=== PATIENT | female | born 1990 | race Caucasian/White ===

== ENCOUNTER 2017-01-15 01:24 | Emergency (ER) | payer OTHER ==
[~2017-01-15] VITALS: Ht 149.9 cm; Wt 43.0 kg
[2017-01-15 01:28] VITALS: TEMP 36.5; Ht 149.9 cm; Wt 43.0 kg
[2017-01-15] MEDS ORDERED: ONDANSETRON INJ 2 MG/ML 2 ML VIAL IV STA (01:45)
[2017-01-15] MEDS ORDERED: MoRPHine SULFATE 4 MG/ML 1 ML CARP\\VIAL IV STA (01:45)
[2017-01-15] MEDS ORDERED: SODIUM CHLORIDE 0.9% 1000ML 1,000 ML IV STA ×2 (01:45)
[2017-01-15] MEDS ORDERED: ONDANSETRON HOME PACK 4MG OD TAB ONE (03:27)
[2017-01-15 03:34] LABS: POTASSIUM 3.4 mmol/L (3.5-5.1)
[2017-01-15 04:00] LABS: BUN/CREATININE RATIO 14.2 (10-20); CREATININE 0.88 mg/dl (0.60-1.20)
[2017-01-15 04:09] VITALS: BP 97/64; O2SAT 95
--- NOTE | 2017-01-15 04:19 | EMERGENCY ROOM VISIT NOTE ---
History First contact with patient: 01:42 Chief Complaint: FLANK PAIN Stated Complaint: ABD AND BACK PAIN AND NAUSEA History of Present Illness The patient is a 26 year old female who presents to the Emergency Room with complaints of Left flank pain that raised to her groin for the past few hours that was sudden in onset currently 8 out of 10. Nothing makes it better or worse. Patient denies chest pain, dyspnea, fever, chills, cough, contusion, vomiting, diarrhea, vaginal itching or discharge, urinary symptoms. No history of similar symptoms in the past. No history kidney stones. No injury to the area. Patient tolerated by mouth fluids and food. Review of Systems See HPI for pertinent positives & negatives. A total of 10 systems reviewed and were otherwise negative. Past Medical/Surgical History Bipolar Social History Smoking Status: Current Every Day Smoker Allergies Coded Allergies: Amitriptyline (Unverified Allergy, Intermediate, unknown, 01/15/17) Amoxicillin (Verified Allergy, Intermediate, hives, 01/15/17) Uncoded Allergies: BACTRIUM (Allergy, Severe, Throat swelling, 01/15/17) Physical Exam Vital Signs Date Time Temp Pulse Resp B/P (MAP) Pulse Ox O2 Delivery O2 Flow Rate FiO2 01/15/17 04:09 74 18 97/64 95 Room Air 01/15/17 01:28 36.5 68 16 105/73 99 Room Air Physical Exam VITALS: Vitals are noted on the nurse's note and reviewed by myself. Vital signs stable. GENERAL: White female with blue hair dye on her hands, in no acute distress, nondiaphoretic, well-developed well-nourished. SKIN: The skin was without rashes, erythema, edema, or bruising. There is no tenting of the skin. Capillary reflex less than 2 seconds. HEAD: Normocephalic atraumatic. EARS: External auditory canals clear, tympanic membranes pearly flaherty without erythema or effusion bilaterally. EYES: Pupils equal round and reactive to light and accommodation. Conjunctivae without injection, sclerae without icterus. Extraocular movements intact. NOSE: Patent, turbinates without inflammation or discharge. MOUTH: Mucous membranes moist. Pharynx without erythema or exudate. Uvula midline. Airway patent. Tongue does not deviate. NECK: Supple without nuchal rigidity. No lymphadenopathy. No thyromegaly. Cervical spine is nontender. No JVD. HEART: Regular rate and rhythm without murmurs gallops or rubs. LUNGS: Clear to auscultation bilaterally without wheezes, rales or rhonchi. No dullness to percussion. No retractions or accessory muscle use. ABDOMEN: Positive bowel sounds x 4. Normal tympanic percussion. Soft, nontender, without masses or organomegaly. Hernandez sign negative. No guarding or rebound tenderness. Left CVA tenderness MUSCULOSKELETAL: No muscle atrophy, erythema, or edema noted. NEURO: Patient was alert and oriented to person place and time. Normal sensation to light and sharp touch. No focal neurological deficits. Medical Decision & Procedures Laboratory Results 01/15/17 02:06 Test 01/15/17 02:06 Anion Gap 8.0 mmol/L (3-11) Est Creatinine Clear Calc Drug Dose 66.9 ml/min Estimated GFR () 106.6 Estimated GFR (Non- 92.0 BUN/Creatinine Ratio 14.2 (10-20) Calcium Level 9.0 mg/dl (8.5-10.1) ED Course Prior records/ancillary studies reviewed. Triage Nursing notes reviewed. Additional history obtained from friend The patient's history was concerning for left flank pain. Differential diagnosis: Etiologies such as appendicitis, diverticulitis, PUD, biliary pathology, UTI, pancreatitis, obstruction, mesenteric ischemia, aortic pathology, infections, inflammatory bowel disease, renal colic, as well as others were entertained. Physical examination findings: As above. ER treatment provided: Morphine, Zofran, IV fluids On reassessment the patient felt better. Diagnostics interpreted by me: The labs revealed negative hCG. Negative urine. Mild leukocytosis. Stable H&H Imaging studies: CT was negative for appendicitis or stone per radiology Chest x-ray with no acute consolidation, pneumothorax or free air per my interpretation Exam and history seem consistent with left flank pain. Patient was neurovascular and neurologically intact. Unremarkable workup as above. Patient then states she had a cough and requested an x-ray and she thinks she has bronchitis. This is ordered and was negative. Patient was not coughing throughout her stay in the ER though. Patient is advised to follow-up family care in a few days or here in the ER sooner for abdominal pain, chest pain, fevers, worsening signs or symptoms or as needed. She did not have acute abdomen on exam. She was well-appearing. By the evaluation outlined above emergent etiologies such as appendicitis, diverticulitis, PUD, biliary pathology, UTI, pancreatitis, obstruction, mesenteric ischemia, aortic pathology, infections, inflammatory bowel disease, renal colic, as well as others were deemed relatively unlikely. The pt informed about the findings as listed above. All questions were answered and pleased with the treatment. Return instructions were outlined and the patient was discharged in stable condition. Outpatient prescription management: Zofran Referral: The patient was referred back to their primary care physician for follow-up in 2 to 3 days for a recheck of the current condition. Case reviewed with my attending. Medical Decision As above Impression Primary Impression: Left flank pain Departure Information Dispostion Home / Self-Care Condition GOOD Referrals No Doctor, Assigned (PCP) Forms HOME CARE DOCUMENTATION FORM, IMPORTANT VISIT INFORMATION Patient Instructions Abdominal Pain - [facility], [facility] Additional Instructions DO NOT drive, drink alcohol, operate machinery, or perform dangerous activities today. You were given medications in the ER that can affect your ability to safely function or operate a vehicle. Ibuprofen(Motrin, Advil) may be used for fever or pain. Use 400mg every six hours as needed. Take with food. Avoid using more than 1600mg in a 24 hour period. Do not use 1600mg per day for more than three consecutive days without physician direction. Prolonged inappropriate use can lead to stomach upset or ulcers. (AND/OR) Acetaminophen(Tylenol) may be used for fever or pain. Use 500mg every six hours as needed. Avoid using more than 200mg in a 24 hour period. Zofran 4mg: Take one every six hours as needed for nausea. Avoid alcohol, operating machinery or dangerous equipment, working on ladders or roofs, DRIVING , or situations where being under the influence may be dangerous. Rest and drink plenty of fluids as tolerated. Slow sips of water or sports drinks are recommended instead of large amounts all at once. Continue current medications. Once your stomach is settled start with a clear liquid diet (jello, soup broth, etc.) and then advance as tolerated. You should avoid full, heavy meals for about 24 hrs from the time your symptoms resolved. Return to the ER immediately for worsening or persistent abdominal pain, vomiting, fevers, chest pains, difficulty breathing, black or bloody stools, worsening of your condition, or as needed. Follow up with your primary physician in 24 hours for a recheck of your current condition.
[2017-01-15 04:27] LABS: BASO % 0.2 %; BASO ABS # 0.03 K/uL (0-0.2); COMPLETE YES; EOS % 1.3 %; HEMATOCRIT 36.3 % (37-47); IG% 0.3 %; LYMPH % 32.6 %; LYMPH ABS # 3.99 K/uL (1.2-3.4); MEAN CELL VOLUME 96.8 fL (80-100); MEAN CORPUSCULAR HEMOGLOBIN 33.9 pg (25-34); MEAN PLATELET VOLUME 9.5 fL (7.4-10.4); MONO % 6.1 %; NEUT % 59.5 %; PLATELET COUNT 309 K/uL (130-400); RED BLOOD COUNT 3.75 M/uL (4.2-5.4); WHITE BLOOD COUNT 12.25 K/uL (4.8-10.8)
[2017-01-15 04:29] LABS: PREG INTERNAL NEGATIVE QC NEG CLEAR BACKGROUND; PREG INTERNAL POSITIVE QC POS CONTROL LINE
--- NOTE | 2017-01-15 07:18 | DIAGNOSTIC IMAGING REPORT ---
TWO VIEW CHEST CLINICAL HISTORY: Cough. FINDINGS: PA and lateral chest radiographs are obtained. No prior studies are available for comparison at the time of dictation. The cardiomediastinal silhouette is unremarkable. The lungs and pleural spaces are clear. There is no pneumothorax. The bony thorax appears intact. IMPRESSION: No active disease in the chest. Electronically signed by: Darren Sandra M.D. 01/15/2017 7:17 AM Dictated Date/Time: 01/15/2017 7:16 AM
--- NOTE | 2017-01-15 07:21 | DIAGNOSTIC IMAGING REPORT ---
CT SCAN OF THE ABDOMEN AND PELVIS WITHOUT IV CONTRAST CLINICAL HISTORY: Left flank pain. COMPARISON STUDY: No priors. TECHNIQUE: CT scan of the abdomen and pelvis is performed from the lung bases to the proximal femora. Images are reviewed in the axial, sagittal, and coronal planes. IV contrast was not administered for this examination. Automated dose control exposure was utilized. CT DOSE: 284.27 mGy.cm FINDINGS: Lung bases: The heart is normal in size and without pericardial effusion. The lung bases are clear. Liver: The unenhanced liver is normal in size, contour, and attenuation. There is no intrahepatic biliary ductal dilatation. Gallbladder: Unremarkable. Spleen: Normal in size and attenuation. Pancreas: Unremarkable. Adrenal glands: Unremarkable. Kidneys: The unenhanced kidneys are normal in size and without hydronephrosis. There are no renal calculi identified. There is no evidence of contour deforming renal mass lesion. Abdominal vasculature: The abdominal aorta is normal in course and caliber. Bowel: The small bowel and colon are normal in course and caliber. There is mild to moderate colonic fecal retention. The appendix is well-visualized and normal. Peritoneum: There is no intraperitoneal free air or abdominal ascites. There is a small fat-containing umbilical hernia. Lymphadenopathy: None. Pelvic viscera: The bladder, uterus, and adnexa are normal as visualized. Skeletal structures: No lytic or blastic lesions are seen. IMPRESSION: There are no acute infectious or inflammatory findings in the abdomen or pelvis. Electronically signed by: Darren Sandra M.D. 01/15/2017 7:19 AM Dictated Date/Time: 01/15/2017 7:17 AM
[2017-02-09] MEDS ORDERED: STR10 PO (04:02)
[2017-02-09] MEDS ORDERED: LAMO25TA PO (04:02)
[2017-02-09] MEDS ORDERED: CLR10 PO (04:03)
[2017-02-09] MEDS ORDERED: OMEP40CA41 PO (04:05)
[2017-02-09] MEDS ORDERED: SERT-234 PO (04:06)
[2017-02-09] MEDS ORDERED: TOPI25TA99 PO (04:08)
[2017-02-09] MEDS ORDERED: PRVHFAIN INH (04:13)
[2017-02-19] MEDS ORDERED: EPP3/2 IM (09:23)
[2017-02-19] MEDS ORDERED: RIBO1TAB4 PO (09:23)
[2017-02-19] MEDS ORDERED: MAGN400T6 PO (09:23)
[2017-02-19] MEDS ORDERED: NAPR1TAB9 PO (09:24)
[2017-02-19] MEDS ORDERED: ACET-1256 PO (09:24)
[2017-02-19] MEDS ORDERED: CYAN10005 PO (09:24)
== END 2017-01-15 04:11 | disposition home or self-care (01) ==
LOC: C.EDB 01:26
DX: R10.32 Left lower quadrant pain (principal); R10.12 Left upper quadrant pain; R05 Cough; F17.200 Nicotine dependence, unspecified, uncomplicated; F31.9 Bipolar disorder, unspecified

== ENCOUNTER 2017-01-28 22:52 | Emergency (ER) | payer OTHER ==
[~2017-01-28] VITALS: Ht 152.4 cm; Wt 43.9 kg
[2017-01-28 22:56] VITALS: TEMP 36.5; Ht 152.4 cm; Wt 43.9 kg
[2017-01-28] MEDS ORDERED: SODIUM CHLORIDE 0.9% 1000ML 1,000 ML IV STA (23:12)
[2017-01-28] MEDS ORDERED: METOCLOPRAMIDE HCL INJ 5 MG/ML 2 ML VIAL IV STA (23:12)
[2017-01-28] MEDS ORDERED: DiphenhydrAMINE HCL 50 MG/ML VIAL IV STA (23:12)
[2017-01-28] MEDS ORDERED: LIDOCAINE HCL 2% VISC SOLN 20 ML UDC PO STA (23:12)
[2017-01-28] MEDS ORDERED: ALUMINUM/MAGNESIUM SUSP 30 ML UDC PO STA (23:12)
[2017-01-28 23:38] LABS: BASO % 0.2 %; BASO ABS # 0.02 K/uL (0-0.2); COMPLETE YES; EOS % 1.8 %; HEMATOCRIT 39.8 % (37-47); IG% 0.2 %; LYMPH % 22.6 %; LYMPH ABS # 2.57 K/uL (1.2-3.4); MEAN CORPUSCULAR HGB CONC 34.7 g/dl (32-36); MEAN PLATELET VOLUME 9.9 fL (7.4-10.4); MONO % 6.9 %; NEUT % 68.3 %; PLATELET COUNT 276 K/uL (130-400); RED BLOOD COUNT 4.06 M/uL (4.2-5.4); WHITE BLOOD COUNT 11.38 K/uL (4.8-10.8)
[2017-01-29] LABS: PREG INTERNAL NEGATIVE QC NEG CLEAR BACKGROUND; PREG INTERNAL POSITIVE QC POS CONTROL LINE
[2017-01-29 00:07] LABS: ALKALINE PHOSPHATASE 66 U/L (45-117); ALT/SGPT 19 U/L (12-78); BLOOD UREA NITROGEN 13 mg/dl (7-18); BUN/CREATININE RATIO 12.5 (10-20); CALCIUM 9.4 mg/dl (8.5-10.1); CARBON DIOXIDE 25 mmol/L (21-32); CHLORIDE 107 mmol/L (98-107); GLUCOSE 72 mg/dl (70-99)
[2017-01-29 00:11] LABS: POTASSIUM 4.2 mmol/L (3.5-5.1); SODIUM 141 mmol/L (136-145)
[2017-01-29 00:16] LABS: AST/SGOT 11 U/L (15-37)
[2017-01-29 00:40] LABS: URINE APPEARANCE CLEAR (CLEAR); URINE BILIRUBIN NEG (NEG); URINE COLOR YELLOW; URINE EPITHELIAL CELL AUTO >30 /lpf (0-5); URINE NITRITE NEG (NEG); URINE PH 5.5 (4.5-7.5); URINE SPECIFIC GRAVITY 1.026 (1.000-1.030); UROBILINOGEN NEG (NEG); ZZUR CULT IF INDIC CLEAN CATCH YES
[2017-01-29 00:41] LABS: MANUAL MICROSCOPIC REQUIRED? NO; REVIEW REQ? NO
[2017-01-29 00:52] VITALS: BP 94/51; PULSE 81; O2SAT 100
--- NOTE | 2017-01-29 01:12 | EMERGENCY ROOM VISIT NOTE ---
History First contact with patient: 23:04 Chief Complaint: ABDOMINAL PAIN Stated Complaint: RIB AND STOMACH PAIN Nursing Triage Summary: Pt reports abdominal pain that started last night. Pt reports nausea and vomiting. History of Present Illness The patient is a 26 year old female who presents to the Emergency Room with complaints of recurrent epigastric discomfort described as discomfort, 8 out of 10. Patient some omeprazole 40 mg twice a day. No endoscopy in the past. Patient states symptoms started again last night after eating cheese fries. Patient states she's been having ongoing reflux for many years. Patient just moved to the area one month ago. This is her second ER visit. Patient states she moved in with her girlfriend and will be staying in this area. Patient denies chest pain, dyspnea, back pain, diarrhea, black or blood in her stool, urinary symptoms. She is tolerating by mouth fluids and food. Review of Systems See HPI for pertinent positives & negatives. A total of 10 systems reviewed and were otherwise negative. Past Medical/Surgical History GERD Social History Smoking Status: Current Every Day Smoker Drug Use: none Marital Status: in relationship Housing Status: lives with significant other Allergies Coded Allergies: Amitriptyline (Unverified Allergy, Intermediate, unknown, 01/15/17) Amoxicillin (Verified Allergy, Intermediate, hives, 01/15/17) Uncoded Allergies: BACTRIUM (Allergy, Severe, Throat swelling, 01/15/17) Physical Exam Vital Signs Date Time Temp Pulse Resp B/P (MAP) Pulse Ox O2 Delivery O2 Flow Rate FiO2 01/29/17 00:52 81 21 94/51 100 01/28/17 23:44 Room Air 01/28/17 23:24 80 01/28/17 22:56 36.5 79 18 106/70 100 Room Air Pain Rating (0-10): 3.0 Physical Exam VITALS: Vitals are noted on the nurse's note and reviewed by myself. Vital signs stable. GENERAL: White female talking with her girlfriend, in no acute distress, nondiaphoretic, well-developed well-nourished. SKIN: The skin was without rashes, erythema, edema, or bruising. There is no tenting of the skin. Capillary reflex less than 2 seconds. HEAD: Normocephalic atraumatic. EARS: External auditory canals clear, tympanic membranes pearly flaherty without erythema or effusion bilaterally. EYES: Pupils equal round and reactive to light and accommodation. Conjunctivae without injection, sclerae without icterus. Extraocular movements intact. NOSE: Patent, turbinates without inflammation or discharge. MOUTH: Mucous membranes moist. Pharynx without erythema or exudate. Uvula midline. Airway patent. Tongue does not deviate. NECK: Supple without nuchal rigidity. No lymphadenopathy. No thyromegaly. Cervical spine is nontender. No JVD. HEART: Regular rate and rhythm without murmurs gallops or rubs. LUNGS: Clear to auscultation bilaterally without wheezes, rales or rhonchi. No dullness to percussion. No retractions or accessory muscle use. ABDOMEN: Positive bowel sounds x 4. Normal tympanic percussion. Soft, nontender, without masses or organomegaly. Hernandez sign negative. No guarding or rebound tenderness. No CVA tenderness MUSCULOSKELETAL: No muscle atrophy, erythema, or edema noted. NEURO: Patient was alert and oriented to person place and time. Normal sensation to light and sharp touch. No focal neurological deficits. Medical Decision & Procedures Laboratory Results 01/28/17 23:25 Red Blood Count 4.06, Mean Corpuscular Volume 98.0, Mean Corpuscular Hemoglobin 34.0, Mean Corpuscular Hemoglobin Concent 34.7, Mean Platelet Volume 9.9, Neutrophils (%) (Auto) 68.3, Lymphocytes (%) (Auto) 22.6, Monocytes (%) (Auto) 6.9, Eosinophils (%) (Auto) 1.8, Basophils (%) (Auto) 0.2, Neutrophils # (Auto) 7.77, Lymphocytes # (Auto) 2.57, Monocytes # (Auto) 0.79, Eosinophils # (Auto) 0.21, Basophils # (Auto) 0.02 01/28/17 23:25 Test 01/28/17 23:15 01/28/17 23:25 Urine Color YELLOW Urine Appearance CLEAR (CLEAR) Urine pH 5.5 (4.5-7.5) Urine Specific [place] 1.026 (1.000-1.030) Urine Protein NEG (NEG) Urine Glucose (UA) NEG (NEG) Urine Ketones NEG (NEG) Urine Occult Blood 1+ (NEG) Urine Nitrite NEG (NEG) Urine Bilirubin NEG (NEG) Urine Urobilinogen NEG (NEG) Urine Leukocyte Esterase NEG (NEG) Urine WBC (Auto) 1-5 /hpf (0-5) Urine RBC (Auto) 0-4 /hpf (0-4) Urine Hyaline Casts (Auto) 1-5 /lpf (0-5) Urine Epithelial Cells (Auto) >30 /lpf (0-5) Urine Bacteria (Auto) 1+ (NEG) White Blood Count 11.38 K/uL (4.8-10.8) Red Blood Count 4.06 M/uL (4.2-5.4) Hemoglobin 13.8 g/dL (12.0-16.0) Hematocrit 39.8 % (37-47) Mean Corpuscular Volume 98.0 fL (80-100) Mean Corpuscular Hemoglobin 34.0 pg (25-34) Mean Corpuscular Hemoglobin Concent 34.7 g/dl (32-36) Platelet Count 276 K/uL (130-400) Mean Platelet Volume 9.9 fL (7.4-10.4) Neutrophils (%) (Auto) 68.3 % Lymphocytes (%) (Auto) 22.6 % Monocytes (%) (Auto) 6.9 % Eosinophils (%) (Auto) 1.8 % Basophils (%) (Auto) 0.2 % Neutrophils # (Auto) 7.77 K/uL (1.4-6.5) Lymphocytes # (Auto) 2.57 K/uL (1.2-3.4) Monocytes # (Auto) 0.79 K/uL (0.11-0.59) Eosinophils # (Auto) 0.21 K/uL (0-0.5) Basophils # (Auto) 0.02 K/uL (0-0.2) RDW Standard Deviation 47.0 fL (36.4-46.3) RDW Coefficient of Variation 13.1 % (11.5-14.5) Immature Granulocyte % (Auto) 0.2 % Immature Granulocyte # (Auto) 0.02 K/uL (0.00-0.02) Anion Gap 9.0 mmol/L (3-11) Est Creatinine Clear Calc Drug Dose 60.1 ml/min Estimated GFR () 91.3 Estimated GFR (Non- 78.8 BUN/Creatinine Ratio 12.5 (10-20) Calcium Level 9.4 mg/dl (8.5-10.1) Total Bilirubin 0.3 mg/dl (0.2-1) Direct Bilirubin 0.1 mg/dl (0-0.2) Aspartate Amino Transf (AST/SGOT) 11 U/L (15-37) Alanine Aminotransferase (ALT/SGPT) 19 U/L (12-78) Alkaline Phosphatase 66 U/L (45-117) Troponin I < 0.015 ng/ml (0-0.045) Total Protein 7.4 gm/dl (6.4-8.2) Albumin 3.9 gm/dl (3.4-5.0) Lipase 144 U/L (73-393) Human Chorionic Gonadotropin, Qual NEG (NEG) Medications Administered Medications (Trade) Dose Ordered Sig/Hermila Route Start Time Stop Time Status Last Admin Dose Admin Lidocaine HCl (Viscous Lidocaine 2% Soln) 10 ml NOW STAT PO 01/28/17 23:12 01/28/17 23:14 DC 01/28/17 23:36 10 ML Al Hydroxide/Mg Hydroxide (Maalox Susp) 30 ml NOW STAT PO 01/28/17 23:12 01/28/17 23:14 DC 01/28/17 23:36 30 ML Metoclopramide HCl (Reglan Inj) 10 mg NOW STAT IV 01/28/17 23:12 01/28/17 23:14 DC 01/28/17 23:36 10 MG Diphenhydramine HCl (Benadryl Inj) 25 mg NOW STAT IV 01/28/17 23:12 01/28/17 23:14 DC 01/28/17 23:36 25 MG Sodium Chloride 1,000 ml @ 999 mls/hr Q1H1M STAT IV 01/28/17 23:12 01/29/17 00:12 DC 01/28/17 23:36 999 MLS/HR ED Course Prior records/ancillary studies reviewed. Triage Nursing notes reviewed. Additional history obtained from friend. The patient's history was concerning for abdominal pain. Differential diagnosis: Etiologies such as appendicitis, diverticulitis, PUD, biliary pathology, UTI, pancreatitis, obstruction, mesenteric ischemia, aortic pathology, infections, inflammatory bowel disease, renal colic, as well as others were entertained. Physical examination findings: As above. ER treatment provided: GI cocktail, Zantac On reassessment the patient felt better. Diagnostics interpreted by me: ECG: Normal sinus, normal intervals, no acute ST-T wave changes. Impression normal sinus rhythm interpreted by myself The labs revealed mild leukocytosis. Negative troponin. Negative hCG. Negative urine Imaging studies: CT from a few weeks ago was negative for acute findings Exam and history seem consistent with ongoing epigastric discomfort most likely related to reflux. Patient was advised to see GI for her ongoing symptoms that she's never had an endoscopy. She is advised to take Maalox or Zantac for breakthrough symptoms and continue her omeprazole. She was advised to return to the immediately for black or blood in her stool, hematemesis, pain, worsening signs or symptoms or as needed. Patient is tolerating by mouth fluids and ambulated without difficulties. She is well-appearing. She was discharged in stable condition.By the evaluation outlined above emergent etiologies such as appendicitis, diverticulitis, PUD, biliary pathology, UTI, pancreatitis, obstruction, mesenteric ischemia, aortic pathology, infections, inflammatory bowel disease, renal colic, as well as others were deemed relatively unlikely. The pt informed about the findings as listed above. All questions were answered and pleased with the treatment. Return instructions were outlined and the patient was discharged in stable condition. Referral: The patient was referred back to their primary care physician and GI for follow- up in 2 to 3 days for a recheck of the current condition. Case reviewed with my attending. Medical Decision As above Impression Primary Impression: Abdominal discomfort, epigastric Departure Information Dispostion Home / Self-Care Condition GOOD Referrals Simeon Sanabria M.D. Forms HOME CARE DOCUMENTATION FORM, IMPORTANT VISIT INFORMATION Patient Instructions GERD, GERD Meds, My [facility] Additional Instructions Continue your omeprazole. Try Maalox or Zantac for breakthrough symptoms. Recommend outpatient endoscopy for your ongoing epigastric discomfort. Rest and drink plenty of fluids as tolerated. Continue current medications. Avoid strenuous activities and anything that worsens your pain. Resume normal activities once your symptoms resolve. Return to the ER immediately for worsening or persistent abdominal pain, vomiting, fevers, chest pains, difficulty breathing, worsening of your condition , or as needed. Follow up with your primary physician and/or gastroenterology in 2-3 days for a recheck of your current condition.
[2017-01-29] MEDS ORDERED: PERP1TAB11 PO (04:04)
[2017-01-29] MEDS ORDERED: GABA-113 PO (04:11)
--- NOTE | 2017-01-29 06:42 | DIAGNOSTIC IMAGING REPORT ---
CHEST ONE VIEW PORTABLE CLINICAL HISTORY: Atypical chest pain COMPARISON STUDY: 01/15/2017 FINDINGS: The cardiac and mediastinal contours are normal. There is no evidence of focal pulmonary consolidation. There is no evidence of failure. No pleural effusions are visualized.[ IMPRESSION: No active disease in the chest. Electronically signed by: Carlito Martinez M.D. 01/29/2017 6:41 AM Dictated Date/Time: 01/29/2017 6:41 AM
[2017-02-09] MEDS ORDERED: LAMO25TA PO (04:02)
[2017-02-09] MEDS ORDERED: STR10 PO (04:02)
[2017-02-09] MEDS ORDERED: CLR10 PO (04:03)
[2017-02-09] MEDS ORDERED: OMEP40CA41 PO (04:05)
[2017-02-09] MEDS ORDERED: SERT-234 PO (04:06)
[2017-02-09] MEDS ORDERED: TOPI25TA99 PO (04:08)
[2017-02-09] MEDS ORDERED: PRVHFAIN INH (04:13)
[2017-02-19] MEDS ORDERED: RIBO1TAB4 PO (09:23)
[2017-02-19] MEDS ORDERED: EPP3/2 IM (09:23)
[2017-02-19] MEDS ORDERED: MAGN400T6 PO (09:23)
[2017-02-19] MEDS ORDERED: CYAN10005 PO (09:24)
[2017-02-19] MEDS ORDERED: NAPR1TAB9 PO (09:24)
[2017-02-19] MEDS ORDERED: ACET-1256 PO (09:24)
== END 2017-01-29 00:53 | disposition home or self-care (01) ==
LOC: C.EDB 22:53 → C.EDA 01-29 00:53
DX: R10.13 Epigastric pain (principal); K21.9 Gastro-esophageal reflux disease without esophagitis; F17.200 Nicotine dependence, unspecified, uncomplicated

== ENCOUNTER 2017-02-02 19:09 | Emergency (ER) | payer OTHER ==
[~2017-02-02] VITALS: Ht 152.4 cm; Wt 44.1 kg
[~2017-02-02 19:09] MED LIST: GABA-113 PO; PERP1TAB11 PO
[2017-02-02 19:16] VITALS: TEMP 36.8; Ht 152.4 cm; Wt 44.1 kg
--- NOTE | 2017-02-02 19:55 | EMERGENCY ROOM VISIT NOTE ---
History Report prepared by Hieu: Natividad Gonsalez Under the Supervision of: Dr. Jonathan Gaines M.D. First contact with patient: 19:25 Chief Complaint: ABDOMINAL PAIN Stated Complaint: ABD PAIN,BLOOD IN URINE & STOOL,HERNIA POPPED OUT History of Present Illness The patient is a 26 year old female who presents to the Emergency Room with complaints of persistent lower abdominal pain that began several weeks ago. She currently rates her discomfort as a 10/10 in severity. The patient states that she was evaluated three weeks ago in the emergency department for epigastric abdominal pain, but states that her pain today is different. She states that she has a known hernia, and states that the pain has been worsening since then. The patient states that nothing alleviates her pain. The patient' s significant other reports that the patient has been experiencing rectal bleeding and vaginal bleeding after intercourse. The patient denies following with anyone from [facility]. She denies any chance of . Source of History: patient, spouse/significant other Onset: several weeks ago Position: abdomen (lower) Symptom Intensity: 10/10 Timing: other (persistent) Note: Associated Symptoms: Rectal bleeding and vaginal bleeding Review of Systems See HPI for pertinent positives & negatives. A total of 10 systems reviewed and were otherwise negative. Past Medical & Surgical Medical Problems: (1) Asthma (2) Bronchitis (3) Pneumonia Surgical Problems: (1) H/O hernia repair Family History Cancer Diabetes mellitus Gallbladder disease Heart disease Hypertension Kidney disease Kidney stones Lung disease Seizures Social History Smoking Status: Current Every Day Smoker Drug Use: none Marital Status: in relationship Housing Status: lives with significant other Occupation Status: unemployed Current/Historical Medications Scheduled Atomoxetine (Strattera), 10 MG PO DAILY Dicyclomine Hcl (Bentyl), 20 MG PO TID Fluticasone Propionate (Nasal) (Flonase Allergy Relief), 1 SPRAY ANN MARIE BID Lamotrigine (Lamictal), 25 MG PO DAILY Loratadine (Claritin), 10 MG PO DAILY Omeprazole (Prilosec), 40 MG PO BID Ranitidine HCl (Ranitidine 75), 150 MG PO DAILY Sertraline (Zoloft), 150 MG PO DAILY Sucralfate (Carafate), 1 GM PO QID Topiramate (Topamax ), 25 MG PO BID Scheduled PRN Albuterol (Ventolin Hfa), 2 PUFFS INH Q4H PRN for SOB/Wheezing Allergies Coded Allergies: Amitriptyline (Unverified Allergy, Intermediate, unknown, 01/15/17) Amoxicillin (Verified Allergy, Intermediate, hives, 01/15/17) Uncoded Allergies: BACTRIUM (Allergy, Severe, Throat swelling, 01/15/17) STRAWBERRIES (Allergy, Severe, ANAPHYLAXIS, 02/02/17) PENICILLIN (Allergy, Unknown, FAMILY HISTORY, 02/02/17) Physical Exam Vital Signs Date Time Temp Pulse Resp B/P (MAP) Pulse Ox O2 Delivery O2 Flow Rate FiO2 02/02/17 22:19 78 18 99 Room Air 02/02/17 21:30 82 17 101/60 96 02/02/17 19:16 36.8 84 18 100/67 100 Room Air Physical Exam GENERAL: Patient is a healthy-appearing well-nourished female HEAD: Normocephalic atraumatic EYES: Ocular movements intact pupils equal and react to light OROPHARYNX mucous membranes are moist no exudates present no erythema or edema present NECK: Supple no nuchal rigidity CHEST: Good equal expansion LUNGS: Clear and equal to auscultation CARDIAC: Normal S1 and S2 ABDOMEN: Soft nontender no guarding, scar from previous hernia in left upper groin. BACK: No CVA tenderness EXTREMITIES: No pain upon palpation normal muscle strength in all groups no clubbing cyanosis or edema NEURO: Patient is following commands and answering questions appropriately. Alert and oriented x3 Cranial Nerves 2-12 grossly intact Medical Decision & Procedures ER Provider Diagnostic Interpretation: Radiology results as stated below per my review and radiologist interpretation: PA CHEST RADIOGRAPH AND UPRIGHT AND SUPINE AP RADIOGRAPHS OF THE ABDOMEN CLINICAL HISTORY: Abdominal pain. Hernia. Hematuria. COMPARISON STUDY: CT of the abdomen and pelvis and chest radiograph January 15, 2017. FINDINGS: Lung volumes are normal. Lungs are clear. There is no pneumothorax or pleural effusion. Cardiac size is normal. Mediastinal contours are normal. There is no evidence of pulmonary edema. No free air is present. The bowel gas pattern is normal. No urinary calculi are identified. There is a moderate amount of stool within the colon and rectum. IMPRESSION: 1. No free air or evidence of bowel obstruction. 2. No acute cardiopulmonary findings. 3. Moderate amount of stool within the colon and rectum. Electronically signed by: Phil Sears M.D. 02/02/2017 9:32 PM Dictated Date/Time: 02/02/2017 9:31 PM LEFT LOWER QUADRANT ABDOMINAL ULTRASOUND HISTORY: Abdominal pain. Hernia. COMPARISON: CT of the abdomen and pelvis January 15, 2017. FINDINGS: No left lower quadrant hernia was identified by sonography. No mass, fluid collection or other sonographic abnormality was identified. IMPRESSION: No left lower quadrant hernia identified by sonography. Electronically signed by: Phil Sears M.D. 02/02/2017 9:25 PM Dictated Date/Time: 02/02/2017 9:24 PM Laboratory Results 02/02/17 20:16 Red Blood Count 4.07, Mean Corpuscular Volume 97.3, Mean Corpuscular Hemoglobin 33.7, Mean Corpuscular Hemoglobin Concent 34.6, Mean Platelet Volume 10.1, Neutrophils (%) (Auto) 63.9, Lymphocytes (%) (Auto) 27.0, Monocytes (%) (Auto) 7.0, Eosinophils (%) (Auto) 1.8, Basophils (%) (Auto) 0.1, Neutrophils # (Auto) 6.34, Lymphocytes # (Auto) 2.68, Monocytes # (Auto) 0.69, Eosinophils # (Auto) 0.18, Basophils # (Auto) 0.01 02/02/17 20:16 Test 02/02/17 20:16 02/02/17 20:45 White Blood Count 9.92 K/uL (4.8-10.8) Red Blood Count 4.07 M/uL (4.2-5.4) Hemoglobin 13.7 g/dL (12.0-16.0) Hematocrit 39.6 % (37-47) Mean Corpuscular Volume 97.3 fL (80-100) Mean Corpuscular Hemoglobin 33.7 pg (25-34) Mean Corpuscular Hemoglobin Concent 34.6 g/dl (32-36) Platelet Count 249 K/uL (130-400) Mean Platelet Volume 10.1 fL (7.4-10.4) Neutrophils (%) (Auto) 63.9 % Lymphocytes (%) (Auto) 27.0 % Monocytes (%) (Auto) 7.0 % Eosinophils (%) (Auto) 1.8 % Basophils (%) (Auto) 0.1 % Neutrophils # (Auto) 6.34 K/uL (1.4-6.5) Lymphocytes # (Auto) 2.68 K/uL (1.2-3.4) Monocytes # (Auto) 0.69 K/uL (0.11-0.59) Eosinophils # (Auto) 0.18 K/uL (0-0.5) Basophils # (Auto) 0.01 K/uL (0-0.2) RDW Standard Deviation 45.3 fL (36.4-46.3) RDW Coefficient of Variation 12.8 % (11.5-14.5) Immature Granulocyte % (Auto) 0.2 % Immature Granulocyte # (Auto) 0.02 K/uL (0.00-0.02) Anion Gap 7.0 mmol/L (3-11) Est Creatinine Clear Calc Drug Dose 54.9 ml/min Estimated GFR () 81.4 Estimated GFR (Non- 70.2 BUN/Creatinine Ratio 11.4 (10-20) Calcium Level 8.7 mg/dl (8.5-10.1) Total Bilirubin 0.2 mg/dl (0.2-1) Direct Bilirubin < 0.1 mg/dl (0-0.2) Aspartate Amino Transf (AST/SGOT) 9 U/L (15-37) Alanine Aminotransferase (ALT/SGPT) 15 U/L (12-78) Alkaline Phosphatase 61 U/L (45-117) Total Protein 7.0 gm/dl (6.4-8.2) Albumin 3.7 gm/dl (3.4-5.0) Lipase 138 U/L (73-393) Urine Color YELLOW Urine Appearance CLEAR (CLEAR) Urine pH 6.0 (4.5-7.5) Urine Specific [place] 1.012 (1.000-1.030) Urine Protein NEG (NEG) Urine Glucose (UA) NEG (NEG) Urine Ketones NEG (NEG) Urine Occult Blood NEG (NEG) Urine Nitrite NEG (NEG) Urine Bilirubin NEG (NEG) Urine Urobilinogen NEG (NEG) Urine Leukocyte Esterase NEG (NEG) Urine Test NEG (NEG) Labs reviewed by ED physician. Medications Administered Medications (Trade) Dose Ordered Sig/Hermila Route Start Time Stop Time Status Last Admin Dose Admin Sodium Chloride 1,000 ml @ 999 mls/hr Q1H1M STAT IV 02/02/17 20:02 02/02/17 21:02 DC 02/02/17 20:32 999 MLS/HR Hydromorphone HCl (Dilaudid Inj) 0.5 mg NOW STAT IV 02/02/17 20:02 02/02/17 20:04 DC 02/02/17 20:31 0.5 MG Ketorolac Tromethamine (Toradol Inj) 30 mg NOW STAT IV 02/02/17 20:02 02/02/17 20:04 DC 02/02/17 20:31 30 MG Metoclopramide HCl (Reglan Inj) 10 mg NOW STAT IV 02/02/17 20:02 02/02/17 20:04 DC 02/02/17 20:31 10 MG Magnesium Citrate (Citrate Of Magnesia Soln) 296 ml NOW STAT PO 02/02/17 21:46 02/02/17 21:48 DC 02/02/17 21:46 296 ML ED Course 1930: Past medical records reviewed. The patient was evaluated in room C2B. A complete history and physical examination was performed. 2001: Ordered Reglan Inj 10 mg IV, Toradol Inj 30 mg IV, Dilaudid Inj 0.5 mg IV , Sodium Chloride 1000 ml @ 999 mls/hr IV.. 2145: Ordered Magnesium Citrate. 2149: I reevaluated the patient and she is resting comfortably. I discussed the exam findings with her and I discussed the treatment plan. She verbalized complete understanding and agreement. She is ready to go home. Medical Decision Differential diagnosis: Etiologies such as appendicitis, diverticulitis, PUD, biliary pathology, UTI, pancreatitis, obstruction, mesenteric ischemia, aortic pathology, infections, inflammatory bowel disease, renal colic, as well as others were entertained. Medication Reconciliation: I attest that I have personally reviewed the patient' s current medication list Blood Pressure Screening: Patient was found to have normal blood pressure on screening and does not require follow up. This is a 26-year-old female who presents emergency Department with a number of complaints. The patient is complaining of rectal bleeding, vaginal bleeding, abdominal pain at the site of a hernia repair. I will note that the patient is already had a CAT scan performed this month for different reasons. I strongly recommended that the patient follow-up with obstetrics vaginal bleeding. She was sent for x-rays which are concerning for constipation. I recommended that the patient take a half a bottle magnesium citrate repeat second half in 6 hours. I also recommended a clear liquid diet for the next 48 hours. The patient is seeing gastroenterology on Thursday. Serial abdominal examinations were performed on the patient in the emergency department and at no time did the patient exhibit a surgical abdomen. She also has no evidence of hernia on examination. She also has no evidence of hernia on ultrasound. Impression Primary Impression: Constipation Additional Impression: Generalized abdominal pain Scribe Attestation The scribe's documentation has been prepared under my direction and personally reviewed by me in its entirety. I confirm that the note above accurately reflects all work, treatment, procedures, and medical decision making performed by me. Departure Information Dispostion Home / Self-Care Prescriptions Dicyclomine Hcl (BENTYL) 20 Mg Tab 20 MG PO TID, #20 TAB Prov: Jonathan Gaines MD 02/02/17 Referrals No Doctor, Assigned (PCP) Forms HOME CARE DOCUMENTATION FORM, IMPORTANT VISIT INFORMATION, School Instructions, Work Instructions Patient Instructions Abdominal Pain, ED Constipation, My [facility] Additional Instructions For a new PCP call [phone]. Follow up with Gastro Follow up with DR Aguilar's office for vag bleeding Follow up with Dr Corral's office for hernia You received narcotic or benzodiazepene medication while in the emergency room today. Do not drive, operate heavy machinery, or drink alcohol under the influence of this medication. Take 1/2 bottle of Mag Citrate Repeat second half in six hours Clear liquid diet next 48 hours You have been examined and treated today on an emergency basis only. This is not a substitute for, or an effort to provide, complete comprehensive medical care. It is impossible to recognize and treat all injuries or illnesses in a single emergency department visit. It is therefore important that you follow up closely with your PCP. Call as soon as possible for an appointment. Thank you for your time and consideration. I look forward to speaking with you again soon. Please don't hesitate to call us if you have any questions. Problem Qualifiers Primary Impression: Constipation Constipation type: unspecified constipation type Qualified Codes: K59.00 - Constipation, unspecified
[2017-02-02] MEDS ORDERED: METOCLOPRAMIDE HCL INJ 5 MG/ML 2 ML VIAL IV STA (20:02)
[2017-02-02] MEDS ORDERED: KETOROLAC TROMETHAMINE 30 MG/ML VIAL IV STA (20:02)
[2017-02-02] MEDS ORDERED: SODIUM CHLORIDE 0.9% 1000ML 1,000 ML IV STA (20:02)
[2017-02-02] MEDS ORDERED: HYDROmorphone INJ 1 MG/ML SYR IV STA (20:02)
[2017-02-02] MEDS ORDERED: RANI1TAB75 PO (20:22)
[2017-02-02 20:57] LABS: BASO % 0.1 %; BASO ABS # 0.01 K/uL (0-0.2); COMPLETE YES; EOS % 1.8 %; HEMATOCRIT 39.6 % (37-47); IG% 0.2 %; LYMPH ABS # 2.68 K/uL (1.2-3.4); MEAN CELL VOLUME 97.3 fL (80-100); MEAN CORPUSCULAR HEMOGLOBIN 33.7 pg (25-34); MEAN CORPUSCULAR HGB CONC 34.6 g/dl (32-36); MEAN PLATELET VOLUME 10.1 fL (7.4-10.4); NEUT % 63.9 %; PLATELET COUNT 249 K/uL (130-400); RED BLOOD COUNT 4.07 M/uL (4.2-5.4); WHITE BLOOD COUNT 9.92 K/uL (4.8-10.8)
[2017-02-02 21:16] LABS: URINE APPEARANCE CLEAR (CLEAR); URINE BILIRUBIN NEG (NEG); URINE COLOR YELLOW; URINE NITRITE NEG (NEG); URINE SPECIFIC GRAVITY 1.012 (1.000-1.030); UROBILINOGEN NEG (NEG)
[2017-02-02 21:20] LABS: BLOOD UREA NITROGEN 13 mg/dl (7-18); BUN/CREATININE RATIO 11.4 (10-20); CALCIUM 8.7 mg/dl (8.5-10.1); CARBON DIOXIDE 23 mmol/L (21-32); CHLORIDE 111 mmol/L (98-107); GLUCOSE 75 mg/dl (70-99); POTASSIUM 3.3 mmol/L (3.5-5.1); SODIUM 141 mmol/L (136-145)
[2017-02-02 21:23] LABS: ALKALINE PHOSPHATASE 61 U/L (45-117); ALT/SGPT 15 U/L (12-78); AST/SGOT 9 U/L (15-37)
--- NOTE | 2017-02-02 21:26 | DIAGNOSTIC IMAGING REPORT ---
LEFT LOWER QUADRANT ABDOMINAL ULTRASOUND HISTORY: Abdominal pain. Hernia. COMPARISON: CT of the abdomen and pelvis January 15, 2017. FINDINGS: No left lower quadrant hernia was identified by sonography. No mass, fluid collection or other sonographic abnormality was identified. IMPRESSION: No left lower quadrant hernia identified by sonography. Electronically signed by: Phil Sears M.D. 02/02/2017 9:25 PM Dictated Date/Time: 02/02/2017 9:24 PM
[2017-02-02 21:30] VITALS: BP 101/60
[2017-02-02 21:33] LABS: MANUAL MICROSCOPIC REQUIRED? NO; REVIEW REQ? NO
--- NOTE | 2017-02-02 21:33 | DIAGNOSTIC IMAGING REPORT ---
PA CHEST RADIOGRAPH AND UPRIGHT AND SUPINE AP RADIOGRAPHS OF THE ABDOMEN CLINICAL HISTORY: Abdominal pain. Hernia. Hematuria. COMPARISON STUDY: CT of the abdomen and pelvis and chest radiograph January 15, 2017. FINDINGS: Lung volumes are normal. Lungs are clear. There is no pneumothorax or pleural effusion. Cardiac size is normal. Mediastinal contours are normal. There is no evidence of pulmonary edema. No free air is present. The bowel gas pattern is normal. No urinary calculi are identified. There is a moderate amount of stool within the colon and rectum. IMPRESSION: 1. No free air or evidence of bowel obstruction. 2. No acute cardiopulmonary findings. 3. Moderate amount of stool within the colon and rectum. Electronically signed by: Phil Sears M.D. 02/02/2017 9:32 PM Dictated Date/Time: 02/02/2017 9:31 PM
[2017-02-02] MEDS ORDERED: MAGNESIUM CITRATE 296 ML/BTL PO STA (21:46)
[2017-02-02] MEDS ORDERED: DICY20TA35 PO (21:51)
[2017-02-02 22:19] VITALS: PULSE 78; O2SAT 99
[2017-02-09] MEDS ORDERED: STR10 PO (04:02)
[2017-02-09] MEDS ORDERED: LAMO25TA PO (04:02)
[2017-02-09] MEDS ORDERED: CLR10 PO (04:03)
[2017-02-09] MEDS ORDERED: OMEP40CA41 PO (04:05)
[2017-02-09] MEDS ORDERED: SERT-234 PO (04:06)
[2017-02-09] MEDS ORDERED: TOPI25TA99 PO (04:08)
[2017-02-09] MEDS ORDERED: PRVHFAIN INH (04:13)
[2017-02-19] MEDS ORDERED: EPP3/2 IM (09:23)
[2017-02-19] MEDS ORDERED: MAGN400T6 PO (09:23)
[2017-02-19] MEDS ORDERED: RIBO1TAB4 PO (09:23)
[2017-02-19] MEDS ORDERED: ACET-1256 PO (09:24)
[2017-02-19] MEDS ORDERED: NAPR1TAB9 PO (09:24)
[2017-02-19] MEDS ORDERED: CYAN10005 PO (09:24)
== END 2017-02-02 22:21 | disposition home or self-care (01) ==
LOC: C.EDB 19:10 → C.EDC 22:21
DX: K59.00 Constipation, unspecified (principal); R10.84 Generalized abdominal pain; J45.909 Unspecified asthma, uncomplicated; Z87.01 Personal history of pneumonia (recurrent); Z80.9 Family history of malignant neoplasm, unspecified; Z83.3 Family history of diabetes mellitus; Z83.79 Family history of other diseases of the digestive system; Z82.49 Family history of ischemic heart disease and other diseases of the circulatory system; Z84.1 Family history of disorders of kidney and ureter; Z83.6 Family history of other diseases of the respiratory system; F17.210 Nicotine dependence, cigarettes, uncomplicated; Z79.899 Other long term (current) drug therapy

== ENCOUNTER 2017-02-09 15:16 | Emergency (ER) | payer OTHER ==
[~2017-02-09] VITALS: Ht 157.5 cm; Wt 43.3 kg
[~2017-02-09 15:16] MED LIST changes: +CLR10 PO; +DICY20TA35 PO; -GABA-113 PO; +LAMO25TA PO; +OMEP40CA41 PO; -PERP1TAB11 PO; +PRVHFAIN INH; +RANI1TAB75 PO; +SERT-234 PO; +STR10 PO; +TOPI25TA99 PO
[2017-02-09 15:22] VITALS: TEMP 36.6; Ht 157.5 cm; Wt 43.3 kg
[2017-02-09] MEDS ORDERED: DICY20TA35 PO (15:41)
[2017-02-09] MEDS ORDERED: RANI300T2 PO (15:41)
--- NOTE | 2017-02-09 16:01 | EMERGENCY ROOM VISIT NOTE ---
ED Visit Note First contact with patient: 15:30 CHIEF COMPLAINT: Insect bite right side of her neck HISTORY OF PRESENT ILLNESS: This 26-year-old female presents the ER with chief complaint of an insect bite on the right side of her neck. The patient is concerned that it might be a spider bite. She did not see whatever bit her in the neck. She states that yesterday she scraped at it and also squeezed it. It then became very red. She thought it might be infected therefore today she washed it out with peroxide. The patient states it does look slightly better. REVIEW OF SYSTEMS: 6 system review was performed and was negative unless stated otherwise in history of present illness. PMH: The patient is healthy; mental health issues, asthma, hernia repair, ear surgery, eye surgery SOCIAL HISTORY: Patient lives with her significant other. The patient admits to tobacco use but denies any alcohol use. PHYSICAL EXAM: Vital Signs: Were reviewed GEN.: 26-year-old white female appears in no acute distress. MENTAL Status: Alert and oriented 3 .SKIN: There is a very small red macules on the right side of the patient's neck. There is no pre-or drainage. There is no ecchymosis or central necrotic area. EMERGENCY COURSE: The patient was evaluated. The patient was reassured that there is no signs of infection. I did however cleansed it with Betadine and sterile saline and apply antibiotic ointment and a bandage. DIAGNOSIS: Insect bite right side of neck DISCHARGE INSTRUCTIONS & TREATMENT: Watch the area for signs of infection. If any should occur, follow-up with your family doctor. Keep bacitracin on it for 2 days. Problem List Medical Problems: (1) Asthma Status: Chronic (2) Bronchitis Status: Resolved (3) Pneumonia Status: Resolved Surgical Problems: (1) H/O hernia repair Status: Resolved Current/Historical Medications Scheduled Atomoxetine (Strattera), 10 MG PO DAILY Dicyclomine Hcl (Bentyl), 20 MG PO TIDM Fluticasone Propionate (Nasal) (Flonase Allergy Relief), 1 SPRAY ANN MARIE DAILY Lamotrigine (Lamictal), 25 MG PO HS Loratadine (Claritin), 10 MG PO DAILY Omeprazole (Prilosec), 40 MG PO BID Ranitidine (Zantac), 300 MG PO HS Sucralfate (Carafate), 1 GM PO QID Topiramate (Topamax ), 25 MG PO BID Scheduled PRN Albuterol (Ventolin Hfa), 2 PUFFS INH Q4H PRN for SOB/Wheezing Allergies Coded Allergies: Amitriptyline (Unverified Allergy, Intermediate, unknown, 01/15/17) Amoxicillin (Verified Allergy, Intermediate, hives, 01/15/17) Uncoded Allergies: BACTRIUM (Allergy, Severe, Throat swelling, 01/15/17) STRAWBERRIES (Allergy, Severe, ANAPHYLAXIS, 02/02/17) PENICILLIN (Allergy, Unknown, FAMILY HISTORY, 02/02/17) Vital Signs Date Time Temp Pulse Resp B/P (MAP) Pulse Ox O2 Delivery O2 Flow Rate FiO2 02/09/17 15:22 36.6 85 20 107/74 95 Room Air Departure Information Referrals No Doctor, Assigned (PCP) Patient Instructions [facility] [place]
[2017-02-09 16:10] VITALS: BP 87/50; PULSE 77; O2SAT 100
[2017-02-09] MEDS ORDERED: FLUT0.15 NAE (20:20)
[2017-02-09] MEDS ORDERED: SUCR1TAB29 PO (20:27)
[2017-02-19] MEDS ORDERED: EPP3/2 IM (09:23)
[2017-02-19] MEDS ORDERED: RIBO1TAB4 PO (09:23)
[2017-02-19] MEDS ORDERED: MAGN400T6 PO (09:23)
[2017-02-19] MEDS ORDERED: ACET-1256 PO (09:24)
[2017-02-19] MEDS ORDERED: CYAN10005 PO (09:24)
[2017-02-19] MEDS ORDERED: NAPR1TAB9 PO (09:24)
== END 2017-02-09 16:11 | disposition home or self-care (01) ==
LOC: C.EDB 15:17 → C.EDD 16:11
DX: S10.86XA Insect bite of other specified part of neck, initial encounter (principal); J45.909 Unspecified asthma, uncomplicated; Z79.899 Other long term (current) drug therapy; Z87.01 Personal history of pneumonia (recurrent); Z87.09 Personal history of other diseases of the respiratory system; W57.XXXA Bitten or stung by nonvenomous insect and other nonvenomous arthropods, initial encounter; F17.200 Nicotine dependence, unspecified, uncomplicated

== ENCOUNTER 2017-02-12 18:56 | Emergency (ER) | payer OTHER ==
[~2017-02-12] VITALS: Ht 152.4 cm; Wt 43.0 kg
[~2017-02-12 18:56] MED LIST changes: +FLUT0.15 NAE; -RANI1TAB75 PO; +RANI300T2 PO; -SERT-234 PO; +SUCR1TAB29 PO
[2017-02-12 19:00] VITALS: TEMP 36.8; Ht 152.4 cm; Wt 43.0 kg
[2017-02-12] MEDS ORDERED: RANITIDINE HCL 50 MG/100 ML D5W IV STA (19:07)
[2017-02-12] MEDS ORDERED: SODIUM CHLORIDE 0.9% 1000ML 1,000 ML IV STA (19:07)
[2017-02-12] MEDS ORDERED: DiphenhydrAMINE HCL 50 MG/ML VIAL IV STA (19:07)
[2017-02-12] MEDS ORDERED: METHYLPREDNISOLONE 125 MG VIAL IV STA (19:07)
--- NOTE | 2017-02-12 19:45 | EMERGENCY ROOM VISIT NOTE ---
History Report prepared by Hieu: Светлана Penaloza Under the Supervision of: Dr. Jonathan Gaines M.D. First contact with patient: 19:03 Chief Complaint: OTHER COMPLAINT Stated Complaint: NUMB LIPS History of Present Illness The patient is a 26 year old female who presents to the Emergency Room via BLS with complaints of persistent lip numbness starting about 20 minutes ago. The patient had teriyaki sauce and about one minute later started having lip numbness. This was the first time the patient has had teriyaki sauce. She has a known allergy to strawberries but denies any other food allergies. She denies any shortness of breath, or any other complaints. Source of History: patient Onset: about 20 minutes ago Position: lip Quality: numbness Timing: other (persistent) Associated Symptoms: No SOB Review of Systems See HPI for pertinent positives & negatives. A total of 10 systems reviewed and were otherwise negative. Past Medical & Surgical Medical Problems: (1) Asthma (2) Bronchitis (3) Pneumonia Surgical Problems: (1) H/O hernia repair Family History Cancer Diabetes mellitus Gallbladder disease Heart disease Hypertension Kidney disease Kidney stones Lung disease Seizures Social History Smoking Status: Current Every Day Smoker Drug Use: none Marital Status: in relationship Housing Status: lives with significant other Occupation Status: unemployed Current/Historical Medications Scheduled Atomoxetine (Strattera), 10 MG PO DAILY Dicyclomine Hcl (Bentyl), 20 MG PO TIDM Epinephrine (Epipen), 0.3 MG IM UD Fluticasone Propionate (Nasal) (Flonase Allergy Relief), 1 SPRAY ANN MARIE DAILY Lamotrigine (Lamictal), 25 MG PO HS Loratadine (Claritin), 10 MG PO DAILY Omeprazole (Prilosec), 40 MG PO BID Prednisone (Prednisone Tab), 0 PO DAILY Ranitidine (Zantac), 300 MG PO HS Ranitidine Hcl (Zantac), 150 MG PO BID Sucralfate (Carafate), 1 GM PO QID Topiramate (Topamax ), 50 MG PO DAILY Scheduled PRN Albuterol (Ventolin Hfa), 2 PUFFS INH Q4H PRN for SOB/Wheezing Allergies Coded Allergies: Amitriptyline (Unverified Allergy, Intermediate, unknown, 02/12/17) Amoxicillin (Verified Allergy, Intermediate, hives, 02/12/17) Uncoded Allergies: BACTRIUM (Allergy, Severe, Throat swelling, 01/15/17) STRAWBERRIES (Allergy, Severe, ANAPHYLAXIS, 02/02/17) PENICILLIN (Allergy, Unknown, FAMILY HISTORY, 02/02/17) Physical Exam Vital Signs Date Time Temp Pulse Resp B/P (MAP) Pulse Ox O2 Delivery O2 Flow Rate FiO2 02/12/17 21:36 91 18 105/74 100 02/12/17 19:49 83 18 100/80 100 Room Air 02/12/17 19:00 36.8 82 18 101/64 99 Room Air Physical Exam GENERAL: Patient is a healthy-appearing well-nourished HEAD: Normocephalic atraumatic EYES: Ocular movements intact pupils equal and react to light OROPHARYNX mucous membranes are moist no exudates present no erythema or edema present NECK: Supple no nuchal rigidity CHEST: Good equal expansion LUNGS: Clear and equal to auscultation CARDIAC: Normal S1 and S2 ABDOMEN: Soft nontender no guarding BACK: No CVA tenderness EXTREMITIES: No pain upon palpation normal muscle strength in all groups no clubbing cyanosis or edema NEURO: Patient is following commands and answering questions appropriately. Alert and oriented x3 Cranial Nerves 2-12 grossly intact Medical Decision & Procedures Medications Administered Medications (Trade) Dose Ordered Sig/Hermila Route Start Time Stop Time Status Last Admin Dose Admin Sodium Chloride 1,000 ml @ 999 mls/hr Q1H1M STAT IV 02/12/17 19:07 02/12/17 20:07 DC 02/12/17 19:44 999 MLS/HR Diphenhydramine HCl (Benadryl Inj) 50 mg NOW STAT IV 02/12/17 19:07 02/12/17 19:09 DC 02/12/17 19:45 50 MG Methylprednisolone Sodium Succinate (Solu-Medrol IV) 125 mg NOW STAT IV 02/12/17 19:07 02/12/17 19:09 DC 02/12/17 19:44 125 MG Ranitidine HCl (zANTac IV) 50 mg NOW STAT IV 02/12/17 19:07 02/12/17 19:09 DC 02/12/17 19:47 50 MG ED Course 1902: Past medical records reviewed. The patient was evaluated in room C01B. A complete history and physical examination was performed. 1906: Ranitidine HCl 50 mg IV, Solu-Medrol IV 125 mg IV, Benadryl Inj 50 mg IV, Sodium Chloride 1000 ml @ 999 mls/hr IV 2110: Upon reexamination the patient is who is feeling much better. I discussed results and treatment plan with the patient. She verbalizes agreement and understanding. The patient is ready for discharge. Medical Decision Differential diagnosis: Etiologies such as allergic reaction, anaphylaxis, urticaria, Cook-Syd syndrome, toxic epidermal necrolysis, erythema multiforme, cellulitis, as well as others were entertained. This is a 26-year-old female who presents emergency department complaining of numb this to the lips. An IV was established, patient given normal saline bolus , Benadryl, Solu-Medrol, Zantac. Repeat examination revealed improvement the patient's symptoms. I do believe that the patient as well as to be discharged home. She was written prescription for EpiPen as well as a prednisone taper and Zantac. Patient was in agreement with the treatment plan. Medication Reconcilliation Current Medication List: was personally reviewed by me Blood Pressure Screening Patient's blood pressure: Normal blood pressure Impression Primary Impression: Allergic reaction Scribe Attestation The scribe's documentation has been prepared under my direction and personally reviewed by me in its entirety. I confirm that the note above accurately reflects all work, treatment, procedures, and medical decision making performed by me. Departure Information Dispostion Home / Self-Care Prescriptions Ranitidine Hcl (ZANTAC) 150 Mg Tab 150 MG PO BID for 7 Days, #14 TAB Prov: Jonathan Gaines MD 02/12/17 Prednisone (Prednisone Tab) 20 Mg Tab 0 PO DAILY, #7 TAB 2 TABS DAILY FOR 2 DAYS, THEN 1 TAB DAILY FOR 2 DAYS, THEN 1/2 TAB DAILY FOR 2 DAYS. Prov: Jonathan Gaines MD 02/12/17 Epinephrine (EPIPEN) 0.3 Mg/0.3 Ml Inj 0.3 MG IM UD, #2 BOX Prov: Jonathan Gaines MD 02/12/17 Referrals Issac Childress M.D.([place]) Forms HOME CARE DOCUMENTATION FORM, IMPORTANT VISIT INFORMATION, WORK / SCHOOL INSTRUCTIONS Patient Instructions ED Allergic Reaction General Other, My [facility] Additional Instructions Use 50 mg Benadryl every 6 hours as needed You have been examined and treated today on an emergency basis only. This is not a substitute for, or an effort to provide, complete comprehensive medical care. It is impossible to recognize and treat all injuries or illnesses in a single emergency department visit. It is therefore important that you follow up closely with Dr Childress. Call as soon as possible for an appointment. Thank you for your time and consideration. I look forward to speaking with you again soon. Please don't hesitate to call us if you have any questions. Problem Qualifiers Primary Impression: Allergic reaction Encounter type: initial encounter Qualified Codes: T78.40XA - Allergy, unspecified, initial encounter
[2017-02-12] MEDS ORDERED: EPP3/2 IM (21:20)
[2017-02-12] MEDS ORDERED: RANI150T3 PO (21:20)
[2017-02-12] MEDS ORDERED: PRED20TA2 PO (21:20)
[2017-02-12 21:36] VITALS: BP 105/74; PULSE 91; O2SAT 100
[2017-02-19] MEDS ORDERED: RIBO1TAB4 PO (09:23)
[2017-02-19] MEDS ORDERED: MAGN400T6 PO (09:23)
[2017-02-19] MEDS ORDERED: EPP3/2 IM (09:23)
[2017-02-19] MEDS ORDERED: ACET-1256 PO (09:24)
[2017-02-19] MEDS ORDERED: CYAN10005 PO (09:24)
[2017-02-19] MEDS ORDERED: NAPR1TAB9 PO (09:24)
== END 2017-02-12 21:36 | disposition home or self-care (01) ==
LOC: C.EDC 18:56 → EDBD 18:56 → C.EDC 21:36
DX: T78.40XA Allergy, unspecified, initial encounter (principal); X58.XXXA Exposure to other specified factors, initial encounter; J45.909 Unspecified asthma, uncomplicated; F17.200 Nicotine dependence, unspecified, uncomplicated; Z98.890 Other specified postprocedural states; Z79.899 Other long term (current) drug therapy; Z88.0 Allergy status to penicillin; Z88.1 Allergy status to other antibiotic agents; Z88.8 Allergy status to other drugs, medicaments and biological substances; Z91.018 Allergy to other foods

== ENCOUNTER → 2017-02-16 | Outpatient (CLI) | payer OTHER ==
[~2017-02-16] MED LIST changes: +ACET-1256 PO; +ATOM25CA5 PO; +BUSP-8 PO; +CLON0.5T3 PO; +CYAN10005 PO; +CYAN30SU PO; +DIVA500T59 PO; +EPP3/2 IM; +HYDR-5688 PO; +LMC/150 PO; +MAGN400T6 PO; +NAPR1TAB9 PO; +PRED20TA2 PO; +RANI150T3 PO; +RIBO1TAB4 PO; +SINCALIDE IV SCH; +SODIUM CHLORIDE 0.9% IV SCH; +ZOLP10TA PO
--- NOTE | 2017-02-16 13:27 | DIAGNOSTIC IMAGING REPORT ---
NUCLEAR MEDICINE HEPATOBILIARY SCAN WITH EJECTION FRACTION ANALYSIS CLINICAL HISTORY: R10.9 abdominal pain COMPARISON STUDY: CT scan dated 01/15/2017 FINDINGS: The patient was injected with 5.5 mCi of technetium 99m Choletec. Anterior imaging was performed. The gallbladder was first visualized on the 15 minute image. There was normal passage of activity into small bowel. The 1 hour, the patient was administered 0.84 mcg of sincalide utilizing a 30 minute intravenous infusion. The gallbladder ejection fraction was normal measuring 77%. IMPRESSION: Normal study. No evidence of cystic duct obstruction. Normal gallbladder ejection fraction of 77%. Electronically signed by: Carlito Martinez M.D. 02/16/2017 1:25 PM Dictated Date/Time: 02/16/2017 1:23 PM
== END | disposition home or self-care (01) ==
LOC: C.NUCL 10:25
PROVIDERS: ATTEND Physician Assistant
DX: R10.9 Unspecified abdominal pain (principal)

== ENCOUNTER → 2017-02-26 | Day surgery (SDC) | payer OTHER ==
[2017-02-19 09:25] VITALS: Ht 152.4 cm; Wt 44.1 kg
[~2017-02-26] VITALS: Ht 152.4 cm; Wt 44.1 kg
[~2017-02-26] MED LIST changes: -PRED20TA2 PO; -RANI150T3 PO; -SINCALIDE IV SCH; +SODIUM CHLORIDE 0.9% 500ML 500 ML IV ONE; -SODIUM CHLORIDE 0.9% IV SCH
--- NOTE | 2017-02-26 14:46 | Endo History and Physical ---
History & Physical Date of Service: Feb 26, 2017. Chief Complaint: ABDOMINAL PAIN Referring Physician: DR. LESTER History of Present Illness 26 yo CF who presents for EGD secondary to abdominal pain. Past Surgical History Hx Cardiac Surgery: No Hx Internal Defibrillator: No Hx Pacemaker: No Hx Abdominal Surgery: Yes (HERNIA REPAIR) Hx of Implantable Prosthesis: No Hx Post-Op Nausea and Vomiting: No Hx Cancer Surgery: No Hx Thoracic Surgery: No Hx Orthopedic: No Hx Urinary Tract Surgery: No Family History Colon CA, IBD Social History Smoking Status: Current Every Day Smoker Hx Substance Use: No Hx Alcohol Use: Yes (QUIT 2 MONTHS AGO - ("1/2 BOTTLE 2 DAYS STRAIGHT-BINGE DRINKER")) Allergies Coded Allergies: Amitriptyline (Verified Allergy, Intermediate, RASH, 02/26/17) Amoxicillin (Verified Allergy, Intermediate, HIVES, 02/26/17) Chicken Allergy (Verified Allergy, Unknown, "MOUTH GOES NUMB AND HAND SWELLING", 02/26/17) [place] (Verified Allergy, Unknown, "I BREAK OUT", 02/26/17) Penicillins (Verified Allergy, Unknown, FAMILY HISTORY, 02/26/17) [place] (Verified Allergy, Unknown, "THROAT CLOSES", 02/26/17) Sulfamethoxazole w/Trimethoprim (Verified Allergy, Unknown, THROAT SWELLING, 02/26/17) Uncoded Allergies: PAPER TAPE (Allergy, Unknown, "EATS MY SKIN", 02/19/17) Current Medications Reported Home Medications Medications Dose Route/Sig Max Daily Dose Days Date Category Aleve (Naproxen) 220 Mg Tab 220 Mg PO DAILY PRN 02/19/17 Reported Tylenol (Acetaminophen) 500 Mg Tab 500 Mg PO Q6H PRN 02/19/17 Reported Vitamin B-12 (Cyanocobalamin) 1,000 Mcg Tab 1,000 Mcg PO QAM 02/19/17 Reported Mag-Ox (Magnesium Oxide) 400 Mg Tab 400 Mg PO DAILY 02/19/17 Reported Riboflavin 400 Mg Tab 1 Tab PO DAILY 02/19/17 Reported Epipen (Epinephrine) 0.3 Mg/0.3 Ml Inj 0.3 Mg IM UD PRN 02/19/17 Reported Zantac (Ranitidine HCl) 300 Mg Tab 300 Mg PO HS 02/09/17 Reported Bentyl (Dicyclomine Hcl) 20 Mg Tab 20 Mg PO TIDM 02/09/17 Reported Carafate (Sucralfate) 1 Gm Tab 1 Gm PO QID 02/02/17 Reported Flonase Allergy Relief (Fluticasone Propionate (Nasal)) 50 Mcg/Act Spr 1 [place] ANN MARIE QAM 02/02/17 Reported Ventolin Hfa (Albuterol) 60 Puffs/5400 Mcg Aers 2 Puffs INH Q4H PRN 01/29/17 Reported Topamax (Topiramate) 25 Mg Tab 50 Mg PO HS 01/29/17 Reported Prilosec (Omeprazole) 40 Mg Cap 40 Mg PO BID 01/29/17 Reported Claritin (Loratadine) 10 Mg Tab 10 Mg PO QAM 01/29/17 Reported Lamictal (Lamotrigine) 25 Mg Tab 25 Mg PO HS 01/29/17 Reported Strattera (Atomoxetine HCl) 10 Mg Cap 10 Mg PO QAM 01/29/17 Reported Vital Signs Weight (Kilograms): 44.09 Height (Feet): 5 Height (Inches): 0 Date Time Temp Pulse Resp B/P (MAP) Pulse Ox O2 Delivery O2 Flow Rate FiO2 02/26/17 14:30 36.8 80 20 104/67 (79) 100 Room Air Physical Exam General Appearance: WD/WN, no apparent distress Respiratory/Chest: Auscultation: breath sounds normal Cardiovascular: Heart Auscultation: RRR Abdomen: Bowel Sounds: normal Inspection & Palpation: soft, non-distended, no tenderness, guarding & rebound Assessment and Plan Assessment: 26 yo CF who presents for EGD secondary to abdominal pain. Plan: Proceed with EGD.
--- NOTE | 2017-02-26 15:30 | Discharge Instructions ---
Endoscopy Patient Instructions Date / Procedure(s) Performed Feb 26, 2017. EGD Allergy Information Coded Allergies: Amitriptyline (Verified Allergy, Intermediate, RASH, 02/26/17) Amoxicillin (Verified Allergy, Intermediate, HIVES, 02/26/17) Chicken Allergy (Verified Allergy, Unknown, "MOUTH GOES NUMB AND HAND SWELLING", 02/26/17) Nickel (Verified Allergy, Unknown, "I BREAK OUT", 02/26/17) Penicillins (Verified Allergy, Unknown, FAMILY HISTORY, 02/26/17) [place] (Verified Allergy, Unknown, "THROAT CLOSES", 02/26/17) Sulfamethoxazole w/Trimethoprim (Verified Allergy, Unknown, THROAT SWELLING, 02/26/17) Uncoded Allergies: PAPER TAPE (Allergy, Unknown, "EATS MY SKIN", 02/19/17) Discharge Date / Findings Feb 26, 2017. Gastritis with biopsies Medication Instructions OK to resume all medications today as prescribed Reported Home Medications Medications Dose Route/Sig Max Daily Dose Days Date Category Aleve (Naproxen) 220 Mg Tab 220 Mg PO DAILY PRN 02/19/17 Reported Tylenol (Acetaminophen) 500 Mg Tab 500 Mg PO Q6H PRN 02/19/17 Reported Vitamin B-12 (Cyanocobalamin) 1,000 Mcg Tab 1,000 Mcg PO QAM 02/19/17 Reported Mag-Ox (Magnesium Oxide) 400 Mg Tab 400 Mg PO DAILY 02/19/17 Reported Riboflavin 400 Mg Tab 1 Tab PO DAILY 02/19/17 Reported Epipen (Epinephrine) 0.3 Mg/0.3 Ml Inj 0.3 Mg IM UD PRN 02/19/17 Reported Zantac (Ranitidine HCl) 300 Mg Tab 300 Mg PO HS 02/09/17 Reported Bentyl (Dicyclomine Hcl) 20 Mg Tab 20 Mg PO TIDM 02/09/17 Reported Carafate (Sucralfate) 1 Gm Tab 1 Gm PO QID 02/02/17 Reported Flonase Allergy Relief (Fluticasone Propionate (Nasal)) 50 Mcg/Act Spr 1 [place] ANN MARIE QAM 02/02/17 Reported Ventolin Hfa (Albuterol) 60 Puffs/5400 Mcg Aers 2 Puffs INH Q4H PRN 01/29/17 Reported Topamax (Topiramate) 25 Mg Tab 50 Mg PO HS 01/29/17 Reported Prilosec (Omeprazole) 40 Mg Cap 40 Mg PO BID 01/29/17 Reported Claritin (Loratadine) 10 Mg Tab 10 Mg PO QAM 01/29/17 Reported Lamictal (Lamotrigine) 25 Mg Tab 25 Mg PO HS 01/29/17 Reported Strattera (Atomoxetine HCl) 10 Mg Cap 10 Mg PO QAM 01/29/17 Reported Provider Instructions Activity Restrictions - No exercising or heavy lifting for 24 hours. - Do not drink alcohol the day of the procedure. - Do not drive a car or operate machinery until the day after the procedure. - Do not make any important decisions or sign important papers in 24 hours after the procedure. Following Day: - Return to full activity which may include returning to work/school. Diet Start your diet with liquids and light foods (jello, soup, juice, toast). Then eat your usual diet if not nauseated. Treatment For Common After Affects For mild abdominal pain, bloating, or excessive gas: - Rest - Eat lightly - Lie on right side Follow-Up Information Follow-up with DR. LESTER as scheduled Anesthesia Information What You Should Know You have had a procedure that required some medicine to reduce anxiety and discomfort. This treatment is called moderate sedation. After receiving the treatment, you may be sleepy, but you will be able to breathe on your own. The effects of the treatment may last for several hours. Follow these instructions along with Activity/Diet recommendations noted above: * Do NOT do anything where dizziness or clumsiness would be dangerous. * Rest quietly at home today, then you can be up and about tomorrow. * Have a responsible person stay with you the rest of today. * You may have had an I.V. today. If so, you may take the dressing off later today. Recommendations Call your doctor if: * Trouble breathing * Continuous vomiting for more than 24 hours * Temperature above 101 degrees * Severe abdominal pain or bloating * Pain not relieved by pain medicine ordered * There is increased drainage or redness from any incision * A large amount of rectal bleeding greater than 2-3 tablespoons. (If you had a polyp/s removed or have hemorrhoids, a small amount of blood - from the rectum is to be expected.) * You have any unanswered questions or concerns. IN THE EVENT OF A SERIOUS EMERGENCY, GO TO THE NEAREST EMERGENCY ROOM Your discharge instructions were prepared by provider Raad Shine. Patient Instructions Signature Page Kellie Slim Patient (or Guardian) Signature/Date: I have read and understand the instructions given to me by my caregivers. Caregiver/RN/Doctor Signature/Date: The above-named patient and/or guardian has received patient instructions on this date. + Original Patient Signature Page (only) stays with chart. Please make copy for patient.
--- NOTE | 2017-02-26 15:35 | GI REPORT ---
Procedure Date: 02/26/2017 3:03 PM Procedure: Upper GI endoscopy Indications: Epigastric abdominal pain Medicines: Monitored Anesthesia Care Complications: No immediate complications. Estimated Blood Loss: Estimated blood loss: none. Procedure: Pre-Anesthesia Assessment: - Prior to the procedure, a History and Physical was performed, and patient medications and allergies were reviewed. The patient's tolerance of previous anesthesia was also reviewed. The risks and benefits of the procedure and the sedation options and risks were discussed with the patient. All questions were answered, and informed consent was obtained. Prior Anticoagulants: The patient has taken no previous anticoagulant or antiplatelet agents. ASA Grade Assessment: II - A patient with mild systemic disease. After reviewing the risks and benefits, the patient was deemed in satisfactory condition to undergo the procedure. After obtaining informed consent, the endoscope was passed under direct vision. Throughout the procedure, the patient's blood pressure, pulse, and oxygen saturations were monitored continuously. The On-site loaner was introduced through the mouth, and advanced to the second part of duodenum. The upper GI endoscopy was accomplished without difficulty. The patient tolerated the procedure well. Findings: The esophagus was normal. Localized mild inflammation characterized by erythema was found in the gastric antrum. Biopsies were taken with a cold forceps for histology. The examined duodenum was normal. Impression: - Normal esophagus. - Gastritis. Biopsied. - Normal examined duodenum. Recommendation: - Resume previous diet. - Continue present medications. - Await pathology results. - Return to primary care physician as previously scheduled. Raad Shine DO 02/26/2017 3:34:53 PM This report has been signed electronically. Note Initiated On: 02/26/2017 3:03 PM I attest to the content of the Intraoperative Record and orders documented therein, exceptions below
[2017-02-26 16:02] VITALS: BP 116/80; PULSE 82; O2SAT 100
--- NOTE | 2017-02-26 16:45 | Anesthesiology Progress Note ---
Anesthesia Post Op Note Date & Time Feb 26, 2017 at 16:44 Vital Signs Pain Intensity: 0 Vital Signs Past 12 Hours Date Time Temp Pulse Resp B/P (MAP) Pulse Ox O2 Delivery O2 Flow Rate FiO2 02/26/17 16:02 82 18 116/80 (92) 100 Room Air 02/26/17 15:47 82 18 96/65 (75) 100 Room Air 02/26/17 15:32 95 12 85/60 (68) 100 Room Air 02/26/17 14:30 36.8 80 20 104/67 (79) 100 Room Air Notes Mental Status: alert / awake / arousable, participated in evaluation Pt Amnestic to Procedure: Yes Nausea / Vomiting: adequately controlled Pain: adequately controlled Airway Patency, RR, SpO2: stable & adequate BP & HR: stable & adequate Hydration State: stable & adequate Anesthetic Complications: no major complications apparent
== END | disposition home or self-care (01) ==
LOC: C.GI 14:11
PROVIDERS: ATTEND Internal Medicine
DX: K29.50 Unspecified chronic gastritis without bleeding (principal); F17.210 Nicotine dependence, cigarettes, uncomplicated; Z80.0 Family history of malignant neoplasm of digestive organs; Z83.79 Family history of other diseases of the digestive system; Z79.899 Other long term (current) drug therapy

== ENCOUNTER → 2017-03-04 | Outpatient (CLI) | payer OTHER ==
[~2017-03-04] MED LIST changes: -SODIUM CHLORIDE 0.9% 500ML 500 ML IV ONE
== END | disposition home or self-care (01) ==
LOC: C.PAPS 08:36
PROVIDERS: ATTEND Physician Assistant
DX: Z12.4 Encounter for screening for malignant neoplasm of cervix (principal); R87.612 Low grade squamous intraepithelial lesion on cytologic smear of cervix (LGSIL)

== ENCOUNTER → 2017-03-04 | Outpatient (CLI) | payer OTHER ==
[2017-03-04 18:30] LABS: URINE APPEARANCE CLOUDY (CLEAR); URINE BILIRUBIN NEG (NEG); URINE COLOR DK YELLOW; URINE EPITHELIAL CELL AUTO >30 /lpf (0-5); URINE NITRITE NEG (NEG); URINE PH 5.5 (4.5-7.5); URINE SPECIFIC GRAVITY 1.026 (1.000-1.030); UROBILINOGEN NEG (NEG)
[2017-03-04 18:36] LABS: MANUAL MICROSCOPIC REQUIRED? NO; REVIEW REQ? YES
[2017-03-09 06:11] LABS: CHLAMYDIA TRACH RNA*** NOT DETECTED (NOT DETECTED); GC (NEIS GONORRHOEAE)RNA** NOT DETECTED (NOT DETECTED); TRICHOMONAS VAGINALIS RNA** NOT DETECTED (NOT DETECTED)
== END | disposition home or self-care (01) ==
LOC: C.LABSPEC 17:28
PROVIDERS: ATTEND Physician Assistant
DX: R35.0 Frequency of micturition (principal); R10.2 Pelvic and perineal pain; N89.8 Other specified noninflammatory disorders of vagina; Z20.2 Contact with and (suspected) exposure to infections with a predominantly sexual mode of transmission

== ENCOUNTER → 2017-03-06 | Outpatient (CLI) | payer OTHER ==
[2017-03-06 10:47] LABS: BASO % 0.2 %; BASO ABS # 0.02 K/uL (0-0.2); COMPLETE YES; EOS % 0.8 %; HEMATOCRIT 38.6 % (37-47); IG% 0.2 %; LYMPH % 19.4 %; LYMPH ABS # 1.62 K/uL (1.2-3.4); MEAN CORPUSCULAR HEMOGLOBIN 34.7 pg (25-34); MEAN CORPUSCULAR HGB CONC 35.8 g/dl (32-36); MEAN PLATELET VOLUME 10.6 fL (7.4-10.4); MONO % 7.9 %; NEUT % 71.5 %; PLATELET COUNT 204 K/uL (130-400); RED BLOOD COUNT 3.98 M/uL (4.2-5.4); WHITE BLOOD COUNT 8.35 K/uL (4.8-10.8)
== END | disposition home or self-care (01) ==
LOC: C.LAB1850 09:01
PROVIDERS: ATTEND Physician Assistant
DX: R10.2 Pelvic and perineal pain (principal); N89.8 Other specified noninflammatory disorders of vagina; Z20.2 Contact with and (suspected) exposure to infections with a predominantly sexual mode of transmission

== ENCOUNTER 2017-04-09 19:56 | Emergency (ER) | payer OTHER ==
[~2017-04-09] VITALS: Ht 152.4 cm; Wt 42.0 kg
[~2017-04-09 19:56] MED LIST changes: -ATOM25CA5 PO; -BUSP-8 PO; -CLON0.5T3 PO; -CYAN30SU PO; -DIVA500T59 PO; -HYDR-5688 PO; -LMC/150 PO; -ZOLP10TA PO
[2017-04-09 20:56] VITALS: TEMP 36.8; Ht 152.4 cm; Wt 42.0 kg
--- NOTE | 2017-04-09 21:42 | DIAGNOSTIC IMAGING REPORT ---
R KNEE 3 VIEWS CLINICAL HISTORY: 26 years-old Female presenting with knee pain status post fall. TECHNIQUE: Frontal, lateral, and sunrise views of the left knee were obtained. COMPARISON: None. FINDINGS: No acute fracture or malalignment. No degenerative change. Trace knee joint effusion may be present. Regional soft tissues otherwise normal. IMPRESSION: No acute osseous injury of the left knee. Electronically signed by: Lei Quintanilla M.D. 04/09/2017 9:40 PM Dictated Date/Time: 04/09/2017 9:39 PM
[2017-04-09] MEDS ORDERED: IBUPROFEN 200 MG TAB PO STA (21:58)
[2017-04-09] MEDS ORDERED: CLON0.5T3 PO (21:58)
[2017-04-09] MEDS ORDERED: LMC/150 PO (21:58)
[2017-04-09] MEDS ORDERED: DIVA500T59 PO (21:58)
[2017-04-09] MEDS ORDERED: CYAN30SU PO (21:58)
[2017-04-09] MEDS ORDERED: ZOLP10TA PO (21:58)
[2017-04-09] MEDS ORDERED: OXYCODONE/ACETAMINOPHEN 5-325 TAB PO STA (21:58)
[2017-04-09] MEDS ORDERED: ATOM25CA5 PO (21:58)
[2017-04-09] MEDS ORDERED: BUSP-8 PO (21:58)
--- NOTE | 2017-04-09 22:02 | EMERGENCY ROOM VISIT NOTE ---
ED Visit Note First contact with patient: 21:25 CHIEF COMPLAINT: knee pain HISTORY OF PRESENT ILLNESS: This 26-year-old female patient presents to the emergency department after sustaining an injury to the left knee during a fall tonight. The patient denies any other injuries besides their knee. The patient denies swelling or bruising. There is pain with weightbearing. They rate the pain as sharp, stabbing and 8/10. The patient states they are not to walk on it. No numbness or tingling. No previous injuries to this knee. No ankle, foot or hip pain. REVIEW OF SYSTEMS: A 6 system review of systems was completed with positives and pertinent negatives listed in the HPI. ALLERGIES: Amitriptyline, amoxicillin, Bactrim MEDICATIONS: Reviewed PMH: Anxiety SOCIAL HISTORY: Denies tobacco or EtOH use PHYSICAL EXAM: Vital Signs: Reviewed Nurse's notes, vital signs stable. GENERAL : 26-year-old female, no acute distress, but appears in pain, well-developed, well-nourished. MENTAL STATUS: Alert, oriented to person place and time, and cooperative. MUSCULOSKELETAL: The left knee is not swollen. There is no ecchymosis. There is no joint effusion present. The patient is tender over the inferior to the patella. There is no joint line tenderness. The patella does not subluxate. Range of motion is limited secondary to pain. Strength of the quads and hamstrings is 5/5. Lucrecia's and Anterior Drawer tests are negative. There is moderate pain with varus and valgus stressing. The foot and toes are warm and well-perfused. Dorsalis pedis pulse 2+. Sensation to pain and light touch is intact. Capillary refill less than 2 seconds. EMERGENCY DEPARTMENT COURSE: I examined the patient. X-rays of the left knee were reviewed Patient Name: ESME MANLEY Unit Number: [id number] Dictated: 04/09/[id number] Transcribed: 04/09/172138 PBS Printed Date/Time: [~ rep prt dt]/[~ rep prt tm] [~ rep ct labl] - [~ rep ct ivnm] [facility] Radiology Department [place], [place] [id number] Dictated: 04/09/172138 Transcribed: 04/09/172138 PBS Printed Date/Time: [~ rep prt dt]/[~ rep prt tm] [~ rep ct labl] - [~ rep ct ivnm] R KNEE 3 VIEWS CLINICAL HISTORY: 26 years-old Female presenting with knee pain status post fall. TECHNIQUE: Frontal, lateral, and sunrise views of the left knee were obtained. COMPARISON: None. FINDINGS: No acute fracture or malalignment. No degenerative change. Trace knee joint effusion may be present. Regional soft tissues otherwise normal. IMPRESSION: No acute osseous injury of the left knee. Electronically signed by: Lei Quintanilla M.D. 04/09/2017 9:40 PM Dictated Date/Time: 04/09/2017 9:39 PM The status of this report is Signed. Draft = Not yet reviewed or approved by Radiologist. Signed = Reviewed and approved by Radiologist. <AttendingPhy></AttendingPhy> <FamilyPhy>Issac Childress M.D.(NICOLLE)</ FamilyPhy> <PrimaryPhy>Issac Childress M.D.(NICOLLE)</PrimaryPhy> <UnitNumber> [id number]</UnitNumber> <VisitNumber>[id number]</VisitNumber> <PatientName> ESME MANLEY</PatientName> <DateOfBirth>1990</DateOfBirth> <Location> [facility]</Location> <ServiceDate>04/09/17</ServiceDate> <MNE>ESINDI</MNE> < OrderingPhy>ED, PROTOCOL</OrderingPhy> <OrderingPhyMNE>f rep ord dr ashford</ OrderingPhyMNE> <DictatingPhyMNE>f rep dict dr ashford</DictatingPhyMNE> <CCListMNE> f rep ct mne</CCListMNE> <AdmittingPhyMNE>f pt admit dr ashford</AdmittingPhyMNE> < AttendingPhyMNE>f pt attend dr ashford</AttendingPhyMNE> <ConsultingPhyMNE>f pt consult dr ashford</ConsultingPhyMNE> <FamilyPhyMNE>f pt fam dr ashford</FamilyPhyMNE> <OtherPhyMNE>f pt other dr ashford</OtherPhyMNE> < PrimaryPhyMNE>f pt prim care dr ashford</PrimaryPhyMNE> <ReferringPhyMNE>f pt referring dr ashford</ReferringPhyMNE> The patient was given 1 dose of Percocet and ibuprofen. We discussed the results of her x-rays. She voiced understanding. he patient was placed in a knee immobilizer under my direction and the position was satisfactory. The patient was instructed on the use of crutches. The patient was discharged home in good condition. DIAGNOSIS: Knee contusion DISCHARGE INSTRUCTIONS: Ice and elevate knee for swelling and pain. Wear knee immobilizer when up and about. Use crutches - minimal weight on foot. Ibuprofen 600 mg and Tylenol 1000 mg every 6 hrs for pain. norco 1 tablet every 6 hrs for additional pain relief. Do not drink or drive while taking norco. Follow-up with Orthopedics for further evaluation and treatment - call for appointment. Follow up with your family doctor or orthopedics if not improving in 5-7 days. This chart was completed in part utilizing [employer] Speech Voice Recognition software. Attempts were made to minimize the grammatical errors, random word insertions, pronoun errors and incomplete sentences. Any formal questions or concerns about the content, text or information contained within the body of this dictation should be directly addressed to the provider for clarification.
[2017-04-09] MEDS ORDERED: HYDR-5688 PO (22:04)
[2017-04-09 23:06] VITALS: BP 100/71; PULSE 89; O2SAT 100
== END 2017-04-09 23:08 | disposition home or self-care (01) ==
LOC: C.EDB 19:57 → C.EDD 23:08
DX: S80.02XA Contusion of left knee, initial encounter (principal); W19.XXXA Unspecified fall, initial encounter; F41.9 Anxiety disorder, unspecified